=== PATIENT | female | born 1970 | race Hispanic/Latino ===

== ENCOUNTER 2017-09-03 06:11 | Day surgery (SDC) | payer OTHER ==
[~2017-09-03 06:11] MED LIST: NACL 0.9% 1000 ML 1,000 ML IV SCH
[2017-09-03] MEDS ORDERED: NACL BACTERIOSTATIC INFILTRATI ONE (06:55)
[2017-09-03] MEDS ORDERED: DIPRIVAN 10 MG/ML IV ONE (07:20)
[2017-09-03] MEDS ORDERED: DILAUDID ONE (07:21)
[2017-09-03] MEDS ORDERED: XYLOCAINE MPF 2% ONE (07:21)
--- NOTE | 2017-09-03 07:21 | Anesthesia Consultation ---
Anesthesia Consult and Med Hx Date of service: 09/03/17 - Airway Anesthetic Teeth Evaluation: Good ROM Head & Neck: Adequate Mental/Hyoid Distance: Adequate Mallampati Class: Class I Intubation Access Assessment: Good - Pulmonary Exam CTA: Yes - Cardiac Exam Cardiac Exam: RRR - Pre-Operative Health Status ASA Pre-Surgery Classification: ASA2 Proposed Anesthetic Plan: General - Pulmonary Hx Smoking: Yes (1/2 PPD X 20 YRS) Hx Sleep Apnea: No (S[facility] PRE SCREEN NEGATIVE) - Cardiovascular System Hx Hypertension: No - Central Nervous System Hx Psychiatric Problems: Yes (anxiety/panic attacks) - Other Systems Hx Cancer: No
[2017-09-03] MEDS ORDERED: DILAUDID IV PRN (07:22)
--- NOTE | 2017-09-03 07:22 | Anesthesia Day of Surgery ---
Anesthesia Day of Surgery - Day of Surgery Patient Examined: Yes Patient H&P Reviewed: Yes Patient is NPO: Yes
[2017-09-03] MEDS ORDERED: ZOFRAN ONE (07:30)
--- NOTE | 2017-09-03 07:57 | Short Stay Summary ---
Short Stay Documentation Date of service: 09/03/17 - Allergies and Medications Current Medications: Allergies codeine Allergy (Verified 05/27/17 14:26) Rash Penicillins Allergy (Verified 05/27/17 14:26) Rash Home Medications Medication Instructions Recorded Confirmed Last Taken Type Ciprofloxacin HCl [Cipro] 500 mg PO BID 05/27/17 09/02/17 Unknown History HYDROcodone/APAP 5-325 [Dunnegan 1 each PO Q4HR PRN 05/27/17 09/02/17 Unknown History 5/325] Ibuprofen [Motrin] 800 mg PO Q8HR PRN 05/27/17 09/02/17 Unknown History Tamsulosin [Flomax] 0.4 mg PO QDAY 09/02/17 09/02/17 Unknown History Active Medications Hydromorphone HCl (Dilaudid) 0.5 mg IV Q10MIN PRN PRN Reason: Pain , Severe (7-10) Stop: 09/03/17 23:59 Sodium Chloride (Nacl 0.9% 1000 Ml) 1,000 mls @ 100 mls/hr IV DIRECT RICO Midazolam HCl (Versed) 2 mg IV PREOP NR Stop: 09/03/17 23:59 - Brief post op/procedure progress note Date of procedure: 09/03/17 Pre-op diagnosis: left uret 9 mm Post-op diagnosis: same Procedure: left urs, 6x26 stent , dilation sbe Anesthesia: GETA Findings: good vis Surgeon: ANNE-MARIE VILLASEÑOR Estimated blood loss: minimal Pathology: list (stone) Specimen disposition: to lab Condition: stable - Hospital course Hospital course: [facility]pac[facility]ome - Disposition Condition at discharge: Good Disposition: DC-01 TO HOME OR SELFCARE Short Stay Discharge Plan Activity: advance as tolerated Diet: advance as tolerated Follow up with: ANNE-MARIE VILLASEÑOR MD [Staff Physician] - 7 Days
[2017-09-03] MEDS ORDERED: VANCOMYCIN PHARMACY TO DOSE IV SCH (08:00)
[2017-09-03] MEDS ORDERED: VERSED IV NR (08:00)
[2017-09-03] MEDS ORDERED: VANCOMYCIN/NS 1 GM/250 ML 1 GM/250 ML BAG IV SCH (08:00)
[2017-09-03] MEDS ORDERED: VANCOMYCIN/0.45 NS 1 GM/250 ML 1 GM/250 ML BAG IV SCH (08:00)
[2017-09-03] MEDS ORDERED: WATER FOR IRRIG STERILE IR ONE ×2 (08:20)
[2017-09-03] MEDS ORDERED: OMNIPAQUE 300 MG/50 ML (CATH LAB) IV ONE (08:20)
[2017-09-03] MEDS ORDERED: NACL 0.9% 1000 ML IV ONE (09:17)
[2017-09-03 10:52] VITALS: BP 96/62
--- NOTE | 2017-09-03 13:07 | Post Anesthesia Evaluation ---
- Post Anesthesia Evaluation Patient Participated: Yes Airway Patent: Yes Stable Respiratory Function: Yes Nausea/Vomiting: No Temp > 96.8F: Yes Pain Manageable: Yes Adequeate Hydration: Yes Anesthesia Complications: No
--- NOTE | 2017-09-04 12:52 | Fluoroscopy Report ---
TEN IMAGES AT FLUOROSCOPIC BILATERAL RETROGRADE PYELOGRAM AND LEFT STENT PLACEMENT: 09/03/17 CLINICAL: Left ureteral stone. FINDINGS: Quality Analyst images demonstrate a suspicious calculus in the left inferior pelvis. Subsequent images demonstrate opacification of a moderately dilated left intrarenal collecting system and left ureter and a normal right intrarenal collecting system and normal right ureter Final images demonstrate placement of a left ureteral stent. For more detail, please refer to the operative report.
--- NOTE | 2017-09-29 18:27 | Operative Report ---
PREOPERATIVE DIAGNOSIS: Left ureteral 9 mm stone POSTOPERATIVE DIAGNOSIS: Left ureteral 9 mm stone. PROCEDURES: Left ureteroscopy, ureteral dilation, stone basket extraction, 6 x 26 double-J stent. ANESTHESIA: General. FINDINGS: Good visualization of the stone. SURGEON: Satya Medeiros MD ESTIMATED BLOOD LOSS: Minimal. PATHOLOGY: Stone. CONDITION: Stable. CLINICAL INDICATIONS: Counseled RCBA, antibiotics, SCDs. The patient wanted stone. Desired to proceed, understanding the risks. DESCRIPTION OF PROCEDURE: The patient transferred to OR suite in supine position, anesthesia, dorsal lithotomy, prepped and draped in standard fashion. Glidewire passed adjacent to the stone prior to this, retrograde pyelogram demonstrated filling defect consistent with stone. A wire passed beyond this balloon dilator passed dilated to approximately 7 atmospheres for 90 seconds, then removed. At this point, a rigid ureteroscope passed, stone identified. This was grasped with a 3-prong grasper. We were able to pull this out within the bladder. The scope was then passed proximally. No significant residual stones. Wire backloaded on the cystoscope. A 6 x 26 double-J stent was passed over the wire under direct and fluoroscopic visualization. When wire and string removed, nice proximal and distal J, bladder drained. The patient awakened and transferred to PACU in good and stable condition. PLAN: Staged for future stent removal. JOB# [id number] ATS/NTS ROEL
== END 2017-09-03 10:50 | disposition home or self-care (01) ==
LOC: OR 06:11
PROVIDERS: ATTEND Urology
DX: N13.2 Hydronephrosis with renal and ureteral calculous obstruction (principal); I10 Essential (primary) hypertension; Z79.899 Other long term (current) drug therapy; Z88.8 Allergy status to other drugs, medicaments and biological substances; Z88.0 Allergy status to penicillin
CPT/HCPCS: 36415; 52332; 52344; 52352; 74420; 74485; 81025; 82365; A4217; C1726; C1758; C1769; C2617; J1170; J2250; J2405; J2704; J3370; J7030; Q9967